=== PATIENT | male | born 1940 | race Caucasian/White ===

== ENCOUNTER → 2016-09-14 | Outpatient (CLI) | payer MEDICARE, BC | LOC: MW.CHGS 08:00 | PROVIDERS: ATTEND Surgery | DX: D12.6 Benign neoplasm of colon, unspecified (principal); K57.30 Diverticulosis of large intestine without perforation or abscess without bleeding | CPT/HCPCS: G0463 ==

== ENCOUNTER 2018-11-15 20:57 | Emergency (ER) | payer MEDICARE, BC ==
[2018-11-15] MEDS ORDERED: Lidocaine 1% 10 ML MDV INJECT ONE (21:10)
[2018-11-15] MEDS ORDERED: Diphtheria,Pertussis(Acell),Tetanus Vaccine 0.5 ML Syringe IM ONE (21:10)
[2018-11-15] MEDS ORDERED: Bacitracin Oint 1 GM U/D Packet TOP ONE (21:12)
--- NOTE | 2018-11-15 21:16 | EDM.PDOC ---
ED HPI GENERAL MEDICAL PROBLEM - General Chief Complaint: Head Injury Stated Complaint: LACERATION ON TOP OF HEAD Time Seen by Provider: 11/15/18 21:07 Source of Information: Reports: Patient History Limitations: Reports: No Limitations - History of Present Illness INITIAL COMMENTS - FREE TEXT/NARRATIVE: HISTORY AND PHYSICAL: History of present illness: Patient is a 78-year-old male who presents to the ED today with a scalp laceration that occurred just prior to arrival to the ED. Patient states he was working out in the field and his tractor when it hit a bump and hit the top of his head on top of the tractor. Patient states he did not lose consciousness and he is not on any blood thinners of any sort. Patient denies any other symptoms other than the laceration. He denies any neck pain. He is not up-to- date on his tetanus vaccine. Patient denies fever, chills, chest pain, shortness of breath, or cough. Denies headache, neck stiff ness, change in vision, syncope, or near syncope. Denies nausea, vomiting, abdominal pain, diarrhea, constipation, or dysuria. Has not noted any blood in urine or stool. Patient has been eating and drinking appropriately. Review of systems: As per history of present illness and below otherwise all systems reviewed and negative. Past medical history: As per history of present illness and as reviewed below otherwise noncontributory. Surgical history: As per history of present illness and as reviewed below otherwise noncontributory. Social history: See social history for further information Family history: As per history of present illness and as reviewed below otherwise noncontributory. Physical exam: General: Patient is alert, oriented, and in no acute distress. Patient sitting comfortably on exam table. HEENT: Atraumatic, normocephalic, pupils equal and reactive bilaterally, negative for conjunctival pallor or scleral icterus, mucous membranes moist, TMs normal bilaterally, throat clear, neck supple, nontender, trachea midline. No drooling or trismus noted. No meningeal signs. No hot potato voice noted. Lungs: Clear to auscultation, breath sounds equal bilaterally, chest nontender. Heart: S1S2, regular rate and rhythm without overt murmur Abdomen: Soft, nondistended, nontender. Negative for masses or hepatosplenomegaly. Negative for costovertebral tenderness. Pelvis: Stable nontender. Genitourinary: Deferred. Rectal: Deferred. Skin: Intact, warm, dry. No lesions or rashes noted. Extremities: Atraumatic, negative for cords or calf pain. Neurovascular unremarkable. Neuro: Awake, alert, oriented. Cranial nerves II through XII unremarkable. Cerebellum unremarkable. Motor and sensory unremarkable throughout. Exam nonfocal. Notes: Discussed the importance for follow-up with primary care provider. Voices understanding and is agreeable to plan of care. Denies any further questions or concerns at this time. Diagnostics: None Therapeutics: Tdap, Lidocaine, mary, bacitracin Prescription: Keflex Impression: Scalp laceration Plan: 1. Keep the area clean and dry. Continue to monitor for signs of infection as discussed. Mary to be removed in 7-10 days. 2. Tylenol and/or ibuprofen as directed and as needed for pain management and discomfort. 3. Please follow-up with your primary care provider as discussed. Return to the ED as needed and as discussed. Definitive disposition and diagnosis as appropriate pending reevaluation and review of above. head Pain Score (Numeric/FACES): 2 - Related Data Allergies Allergy/AdvReac Type Severity Reaction Status Date / Time No Known Allergies Allergy Verified 11/15/18 21:04 Home Meds: Home Meds atorvaSTATin Calcium [Atorvastatin Calcium] 10 mg PO BEDTIME 08/24/16 [History] Tamsulosin HCl [Flomax] 1 tab PO DAILY 11/15/18 [History] Past Medical History HEENT History: Reports: Cataract, Retinal Detachment Cardiovascular History: Reports: High Cholesterol Gastrointestinal History: Reports: None Musculoskeletal History: Reports: Other (See Below) - Past Surgical History HEENT Surgical History: Reports: Cataract Surgery, Detached Retina, Tonsillectomy GI Surgical History: Reports: Hernia, Inguinal Musculoskeletal Surgical History: Reports: Shoulder Surgery, Other (See Below) ED ROS GENERAL - Review of Systems Review Of Systems: ROS reveals no pertinent complaints other than HPI. ED EXAM, HEAD INJURY - Physical Exam Exam: See Below (See dictation) ED LACERATION/WOUND & ASHELY PROC - Laceration/Wound Repair Anterior Head Distal NVT: Neuro & Vascular Intact, No Tendon Injury Anesthetic Type: Local Local Anesthesia - Lidocaine (Xylocaine): 1% Plain Local Anesthetic Volume: Other (10cc) Skin Prep: Chlorhexidine (Hibiciens) Saline irrigation (cc's): 60 Exploration/Debridement/Repair: Wound Explored, In a Bloodless Field, Explored to Base, No Foreign Material Found Closed with: Mary Drain Placement: No Sterile Dressing Applied: Nurse Tetanus Status Addressed: Yes Complications: No Course - Vital Signs Last Recorded V/S: Last Vital Signs Temp 36.2 C 11/15/18 21:00 Pulse 60 11/15/18 21:00 Resp 18 11/15/18 21:00 BP 160/90 H 11/15/18 21:00 Pulse Ox 94 L 11/15/18 21:00 - Orders/Labs/Meds Orders: Active Orders 24 hr Category Date Time Status Vaccines to be Administered [RC] PER UNIT ROUTINE Care 11/15/18 21:10 Active Vaccines to be Administered [RC] PER UNIT ROUTINE Care 11/15/18 21:19 Active Meds: Medications Discontinued Medications Generic Name Dose Route Start Last Admin Trade Name Freq PRN Reason Stop Dose Admin Bacitracin 1 dose 11/15/18 21:12 11/15/18 21:25 Bacitracin Oint 1 Gm TOP 11/15/18 21:13 1 dose ONETIME ONE Administration Diphtheria/Tetanus/Acell Pertussis 0.5 ml 11/15/18 21:10 11/15/18 21:25 Adacel IM 11/15/18 21:11 Not Given .ONCE ONE Lidocaine HCl Confirm 11/15/18 21:18 11/15/18 21:27 Xylocaine-Mpf 1% Administered 11/15/18 21:19 Not Given Dose 10 mls @ as directed .ROUTE .STK-MED ONE Lidocaine HCl 10 ml 11/15/18 21:10 11/15/18 21:27 Xylocaine 1% INJECT 11/15/18 21:11 Not Given ONETIME ONE Lidocaine HCl 5 ml 11/15/18 21:26 11/15/18 21:27 Xylocaine-Mpf 1% INJECT 11/15/18 21:27 5 ml ONETIME ONE Administration Tetanus/Diphtheria Toxoids 0.5 ml 11/15/18 21:19 11/15/18 21:26 Tenivac IM 11/15/18 21:20 0.5 ml .ONCE ONE Administration Departure - Departure Time of Disposition: 21:46 Disposition: Home, Self-Care 01 Clinical Impression: Scalp laceration Qualifiers: Encounter type: initial encounter Qualified Code(s): S01.01XA - Laceration without foreign body of scalp, initial encounter - Discharge Information Instructions: Stitches, Mary, or Adhesive Wound Closure Referrals: Hansel Hernandez MD [Primary Care Provider] - Forms: ED Department Discharge Additional Instructions: The following information is given to patients seen in the emergency department who are being discharged to home. This information is to outline your options for follow-up care. We provide all patients seen in our emergency department with a follow-up referral. The need for follow-up, as well as the timing and circumstances, are variable depending upon the specifics of your emergency department visit. If you don't have a primary care physician on staff, we will provide you with a referral. We always advise you to contact your personal physician following an emergency department visit to inform them of the circumstance of the visit and for follow-up with them and/or the need for any referrals to a consulting specialist. The emergency department will also refer you to a specialist when appropriate. This referral assures that you have the opportunity for follow-up care with a specialist. All of these measure are taken in an effort to provide you with optimal care, which includes your follow-up. Under all circumstances we always encourage you to contact your private physician who remains a resource for coordinating your care. When calling for follow-up care, please make the office aware that this follow-up is from your recent emergency room visit. If for any reason you are refused follow-up, please contact the Emergency Department at and asked to speak to the emergency department charge nurse. Primary Care [address] [place] [address] [id number] [address] [address] 1. Keep the area clean and dry. Continue to monitor for signs of infection as discussed. Mary to be removed in 7-10 days. 2. Tylenol and/or ibuprofen as directed and as needed for pain management and discomfort. 3. Please follow-up with your primary care provider as discussed. Return to the ED as needed and as discussed. - My Orders Last 24 Hours: My Active Orders 11/15/18 21:10 Vaccines to be Administered [RC] PER UNIT ROUTINE 11/15/18 21: Vaccines to be Administered [RC] PER UNIT ROUTINE - Assessment/Plan Last 24 Hours: My Active Orders 11/15/18 21:10 Vaccines to be Administered [RC] PER UNIT ROUTINE 11/15/18 21:19 Vaccines to be Administered [RC] PER UNIT ROUTINE
[2018-11-15] MEDS ORDERED: Diphtheria/Tetanus Toxoids,Adult (Td) 0.5 ML Syringe IM ONE (21:19)
[2018-11-15 22:01] VITALS: BP 145/66
== END 2018-11-15 21:55 | disposition home or self-care (01) ==
LOC: MW.ED 20:57
DX: S01.01XA Laceration without foreign body of scalp, initial encounter (principal); Z23 Encounter for immunization; E78.00 Pure hypercholesterolemia, unspecified; Z79.899 Other long term (current) drug therapy; W22.8XXA Striking against or struck by other objects, initial encounter; Y99.0 Civilian activity done for income or pay
CPT/HCPCS: 12002; 90471; 90714; 99283; J2001

== ENCOUNTER 2018-11-21 17:56 | Emergency (ER) | payer MEDICARE, BC ==
[2018-11-21 18:03] VITALS: BP 176/88
== END 2018-11-21 18:07 | disposition left against medical advice (07) ==
LOC: MW.ED 17:56
DX: Z53.21 Procedure and treatment not carried out due to patient leaving prior to being seen by health care provider (principal)

== ENCOUNTER 2022-12-25 20:46 | Emergency (ER) | payer BC, MEDICARE ==
[2022-12-25] MEDS ORDERED: Sodium Chloride 0.9% 2.5 ML Syringe FLUSH PRN (21:01)
[2022-12-25] MEDS ORDERED: Sodium Chloride 0.9% 10 ML Syringe FLUSH PRN (21:01)
[2022-12-25 21:06] LABS: BASOPHILS PERCENT AUTO 0.3 % (0.0-1.5); EOSINOPHILS ABSOLUTE AUTO 0.4 K/uL (0.0-0.7); HEMATOCRIT 43.5 % (38.0-50.0); HEMOGLOBIN 14.8 g/dL (13.0-17.0); LYMPHOCYTES ABSOLUTE AUTO 2.5 K/uL (0.6-2.4); LYMPHOCYTES PERCENT AUTO 35.7 % (16.0-40.0); MEAN CORPUSCULAR HEMOGLOBIN 30.6 pg (27.0-32.0); MEAN CORPUSCULAR VOLUME 89.9 fL (80.0-98.0); MONOCYTES ABSOLUTE AUTO 0.9 K/uL (0.0-0.8); MONOCYTES PERCENT AUTO 13.3 % (0.0-15.0); NEUTROPHILS ABSOLUTE AUTO 3.2 K/uL (1.4-5.7); NEUTROPHILS PERCENT AUTO 44.7 % (48.0-80.0); NRBC ABSOLUTE 0 K/uL; PLATELET COUNT,PLT 182 K/uL (150-400); RED BLOOD CELL COUNT 4.84 M/uL (4.50-5.90); WHITE BLOOD CELL COUNT,WBC 7.05 K/uL (4.0-11.0)
[2022-12-25 21:41] LABS: A/G RATIO 1.2 (0.9-1.6); ALBUMIN 3.6 g/dL (3.4-5.0); BILIRUBIN TOTAL 0.4 mg/dL (0.2-1.0); CALCIUM 8.9 mg/dL (8.5-10.1); CARBON DIOXIDE,CO2 23.9 mmol/L (21.0-32.0); CREATININE 1.4 mg/dL (0.8-1.3); EST CRCL DRUG DOSING (CG) 40.04 mL/min; PROTEIN TOTAL,TP 6.6 g/dL (6.4-8.2)
[2022-12-25 21:52] LABS: MAGNESIUM 1.8 mg/dL (1.8-2.4); TSH ULTRASENSITIVE 1.99 uIU/mL (0.36-3.74)
[2022-12-25 22:55] VITALS: BP 119/56; PULSE 53
== END 2022-12-25 22:54 | disposition home or self-care (01) ==
LOC: MW.ED 20:46
DX: R07.89 Other chest pain (principal); I44.0 Atrioventricular block, first degree; E78.00 Pure hypercholesterolemia, unspecified; Z79.899 Other long term (current) drug therapy
CPT/HCPCS: 36415; 71045; 71045-26; 80053; 83690; 83735; 83880; 84443; 84484; 85025; 85379; 85610; 93005; 99285